=== PATIENT | male | born 1970 | race Caucasian/White ===

== ENCOUNTER 2017-01-06 16:03 | Emergency (ER) | payer MEDICAID, OTHER ==
[~2017-01-06] VITALS: Ht 162.6 cm; Wt 66.0 kg
[2017-01-06 16:16] VITALS: Ht 162.6 cm; Wt 66.0 kg
[2017-01-06] MEDS ORDERED: SOD CHLORIDE 0.9% 1,000 ML IV STA (18:07)
[2017-01-06] MEDS ORDERED: INSULIN LISPRO 100 UNIT/ML VIAL SC STA (18:07)
--- NOTE | 2017-01-06 18:26 | RADRPT ---
PROCEDURE: XR Chest. CLINICAL INDICATION: Abdomen pain. TECHNIQUE: Single frontal view. COMPARISON: None. FINDINGS: The lungs are clear. The heart size is normal. There is no pleural effusion. There is no pneumothorax. IMPRESSION: 1. Normal chest radiograph. RPTAT: QQ .Speedy Sawyer MD, Date Time Electronically viewed and signed by .Speedy Sawyer MD, on 01/06/2017 18:25 .R/
--- NOTE | 2017-01-06 18:59 | ERA ---
ER Documentation Chief Complaint Date/Time DATE: 01/06/17 TIME: 18:54 Chief Complaint ADAM KNEE PAIN,SLEEPY,FREQUENT URINATION HPI 46-year-old man referred here by PMD for hyperglycemia and hemoglobin A1c of 16. He states for the last few weeks has been feeling very weak and has lost 30 pounds over the last 3 months, he has had increased urinary frequency and nocturia. He denies fevers or chills, no loss of consciousness, no chest pain or shortness of breath, no vomiting or diarrhea. Patient denies past medical history and denies family history of diabetes mellitus ROS All systems reviewed and are negative except as per history of present illness. Allergies Allergies: Coded Allergies: No Known Allergy (Unverified , 01/06/17) PMhx/Soc None FmHx None Family History: No diabetes Physical Exam Vitals Vital Signs Date Time Temp Pulse Resp B/P Pulse Ox O2 Delivery O2 Flow Rate FiO2 01/06/17 16:16 98.3 90 18 130/79 98 Physical Exam GENERAL: Well-developed, well-nourished, appears dehydrated. Afebrile HEENT: Dry mucous membranes, pink conjunctiva, no cervical spine tenderness or step-off deformities, no goiter, no jaundice or icterus, extraocular movements intact without pain. No submandibular induration, and no pharyngeal erythema NEURO: Alert and oriented 3, cranial nerves II through XII intact bilaterally, pupils equal round reactive to light, no focal deficits or facial asymmetry, sensation intact distally Strength 5/5 in upper and lower extremities bilaterally CARDIAC: Regular rate and rhythm, no murmurs rubs or gallops LUNGS: Clear bilaterally no wheezing crackles or stridor ABDOMEN: Soft nontender, no guarding, no rigidity, no rebound, no psoas sign no obturator sign. Normoactive bowel sounds SKIN: Warm and dry to touch, no abrasions, contusions, or hematomas, no lacerations, no ecchymosis, no target lesions, and without ulcers EXTREMITIES: No clubbing cyanosis or edema, calves are bilaterally symmetrical, no Homans sign, no popliteal cord sign. Distal pulses equal and bilateral PSYCH: Normal affect without agitation or irritability Result Diagram: 01/06/17191101/06/171911 Results 24 hrs Laboratory Tests Test 01/06/17 19:11 01/06/17 19:12 01/06/17 19:30 01/06/17 20:00 Bedside Glucose 539mg/dL 419mg/dL White Blood Count 5.510^3/ul Red Blood Count 4.3910^6/ul Hemoglobin 13.8g/dl Hematocrit 39.2% Mean Corpuscular Volume 89.3fl Mean Corpuscular Hemoglobin 31.4pg Mean Corpuscular Hemoglobin Concent 35.2g/dl Red Cell Distribution Width 12.2% Platelet Count 03900^3/UL Mean Platelet Volume 11.0fl Neutrophils % 50.6% Lymphocytes % 37.3% Monocytes % 7.3% Eosinophils % 4.2% Basophils % 0.2% Nucleated Red Blood Cells % 0.0/100WBC Neutrophils # 2.810^3/ul Lymphocytes # 2.110^3/ul Monocytes # 0.410^3/ul Eosinophils # 0.210^3/ul Basophils # 0.010^3/ul Nucleated Red Blood Cells # 0.010^3/ul Sodium Level 130mmol/L Potassium Level 4.3mmol/L Chloride Level 94mmol/L Carbon Dioxide Level 24mmol/L Anion Gap 16 Blood Urea Nitrogen 18mg/dl Creatinine 0.78mg/dl Glucose Level 587mg/dl Calcium Level 8.5mg/dl Total Bilirubin 0.2mg/dl Direct Bilirubin 0.00mg/dl Indirect Bilirubin 0.2mg/dl Aspartate Amino Transf (AST/SGOT) 31IU/L Alanine Aminotransferase (ALT/SGPT) 46IU/L Alkaline Phosphatase 137IU/L Troponin I < 0.012ng/ml Total Protein 6.8g/dl Albumin 3.7g/dl Globulin 3.10g/dl Albumin/Globulin Ratio 1.19 Lipase 118U/L Urine Color LT. YELLOW Urine Clarity CLEAR Urine pH 6.0 Urine Specific Ona <=1.005 Urine Ketones 15 Urine Nitrite NEGATIVE Urine Bilirubin NEGATIVE Urine Urobilinogen 0.2 E.U./dL Urine Leukocyte Esterase NEGATIVE Urine Hemoglobin NEGATIVE Urine Glucose >=1000% Urine Total Protein NEGATIVE Current Medications Medications (Trade) Dose Ordered Sig/Catarino Route PRN Reason Start Time Stop Time Status Last Admin Dose Admin Sodium Chloride (NS) 1,000 ml @ 2,000 mls/hr Q30M STAT IV 01/06/17 18:07 01/06/17 18:36 DC 01/06/17 19:14 Insulin Human Lispro (Humalog) 10 unit ONCE STAT SC 01/06/17 18:07 01/06/17 18:09 DC 01/06/17 19:13 Insulin Human Regular (Humulin R) 10 unit ONCE ONCE IV 01/06/17 20:30 01/06/17 20:31 Procedures/MDM IV line was established patient was placed on athletic monitor rhythm strip revealed a sinus rhythm at about 80 bpm with upright P and T waves. Patient was afebrile. I administered 2 L normal saline intravenously and insulin 10 units subcutaneous injection for hyperglycemia. Chest X-ray 1V Interpreted by me: Soft Tissue: No acute abnormalities Bones: No acute abnormalities Mediastinum/Cardiac Silhouette/Lungs: No acute abnormalities EKG performed, read by me: 76 bpm, normal sinus rhythm, normal axis, no acute ST segment changes, narrow QRS complex, with good R-wave progression in precordial leads. After initial insulin therapy his blood sugar fell to 419. I gave a dose of regular insulin 10 units IV 1. CBC and electrolytes are unremarkable, bicarb normal, urine analysis negative for infection. After above therapy blood sugar improved he feels much better and looks well. Vital signs are normal and I will discharge him with a prescription for metformin twice daily until he can see his PMD for insulin regimen. Differential diagnoses considered, included but not limited to acute coronary syndrome, pulmonary embolism, aortic dissection, abdominal aortic aneurysm, sepsis, stroke, meningitis, encephalitis, pneumonia, appendicitis, cholecystitis , bowel obstruction, pyelonephritis, nephrolithiasis, cystitis, as well as metabolic, hematologic, and electrolyte abnormalities. As well as abscess, cellulitis, fractures, and dislocations. Patient feels much better at this time, and vital signs are normal, symptoms have improved. I did give strict instructions to return to the ED if symptoms continue or worsen, patient will otherwise follow-up with primary care physician. Patient understood instructions and agreed to plan. Departure Diagnosis: Primary Impression: Diabetes mellitus, new onset Additional Impressions: Hyperglycemia Dehydration Condition: Good JASON DIAZ MD Jan 06, 2017 18:59
[2017-01-06 19:28] LABS: ADD SCAN DIFF NO
[2017-01-06 19:42] LABS: ALBUMIN 3.7 g/dl (3.3-4.9); CHLORIDE 94 mmol/L (97-110)
[2017-01-06 19:43] LABS: POTASSIUM 4.3 mmol/L (3.5-5.1); SODIUM 130 mmol/L (135-144)
[2017-01-06 19:45] LABS: ALBUMIN/GLOBULIN RATIO 1.19; ALKALINE PHOSPHATASE 137 IU/L (42-121); ANION GAP 16 (8-16); ASPARTATE AMINO TRANSFERASE 31 IU/L (15-46); BILIRUBIN,INDIRECT 0.2 mg/dl (0-1.1); BILIRUBIN,TOTAL 0.2 mg/dl (0.2-1.3); BLOOD UREA NITROGEN 18 mg/dl (7-20); CARBON DIOXIDE 24 mmol/L (21-31); CREATININE 0.78 mg/dl (0.61-1.24); TOTAL PROTEIN 6.8 g/dl (6.1-8.1)
[2017-01-06 19:46] LABS: ALANINE AMINOTRANSFERASE 46 IU/L (13-69); CALCIUM 8.5 mg/dl (8.4-10.2)
[2017-01-06 20:01] LABS: BASOPHILS % 0.2 % (0.0-2.0); EOSINOPHILS # 0.2 10^3/ul (0.0-0.5); EOSINOPHILS % 4.2 % (0.0-7.0); HEMATOCRIT 39.2 % (42.0-52.0); HEMOGLOBIN 13.8 g/dl (14.0-18.0); LYMPHOCYTES # 2.1 10^3/ul (0.8-2.9); LYMPHOCYTES % 37.3 % (15.0-51.0); MEAN CORPUSCULAR HEMOGLOBIN 31.4 pg (29.0-33.0); MEAN CORPUSCULAR HGB CONC 35.2 g/dl (32.0-37.0); MEAN CORPUSCULAR VOLUME 89.3 fl (82.0-101.0); MONOCYTE # 0.4 10^3/ul (0.3-0.9); MONOCYTES % 7.3 % (0.0-11.0); NEUTROPHIL # 2.8 10^3/ul (1.6-7.5); NEUTROPHILS % 50.6 % (39.0-77.0); PLATELET COUNT 260 10^3/UL (140-415); RED BLOOD COUNT 4.39 10^6/ul (4.70-6.10); RED CELL DISTRIBUTION WIDTH 12.2 % (11.5-14.5); WHITE BLOOD COUNT 5.5 10^3/ul (4.8-10.8)
[2017-01-06 20:04] LABS: GLUCOSE 587 mg/dl (70-220); TROPONIN-I < 0.012 ng/ml (0.00-0.12)
[2017-01-06 20:11] LABS: ADD UMIC NO; URINE BILIRUBIN (Dip) NEGATIVE (NEGATIVE); URINE BLOOD (Dip) NEGATIVE (NEGATIVE); URINE COLOR LT. YELLOW (YELLOW); URINE GLUCOSE (Dip) >=1000 % (NEGATIVE); URINE KETONES (Dip) 15 (NEGATIVE); URINE LEUKOCYTE ESTERASE (Dip) NEGATIVE (NEGATIVE); URINE NITRITE (Dip) NEGATIVE (NEGATIVE); URINE TOTAL PROTEIN (Dip) NEGATIVE (NEGATIVE); URINE UROBILINOGEN (Dip) 0.2 E.U./dL (0.1-1.0)
[2017-01-06] MEDS ORDERED: INSULIN REGULAR, HUMAN 100 UNIT/1 ML 3ML VIAL IV ONE (20:30)
[2017-01-06] MEDS ORDERED: METF500T4 PO (20:32)
[2017-01-06 21:56] VITALS: BP 108/64; PULSE 73; RESP 18; TEMP 98.3
== END 2017-01-06 22:17 | disposition home or self-care (01) ==
LOC: FTE 16:03
DX: E11.65 Type 2 diabetes mellitus with hyperglycemia (principal); E86.0 Dehydration
CPT/HCPCS: 71010; 80053; 81003; 82962; 83690; 84484; 85025; 93005; J1815; J7030; 36415; 96372